=== PATIENT | male | born 1975 | race Caucasian/White ===

== ENCOUNTER 2017-07-18 12:48 | Inpatient (IN) | END 2017-07-20 14:00 | disposition home health service (06) | DRG 720 | DX: A41.9 Sepsis, unspecified organism (principal); D69.6 Thrombocytopenia, unspecified; D75.1 Secondary polycythemia; E83.42 Hypomagnesemia; J20.9 Acute bronchitis, unspecified; E78.1 Pure hyperglyceridemia; E87.6 Hypokalemia; I10 Essential (primary) hypertension; R74.0 Nonspecific elevation of levels of transaminase and lactic acid dehydrogenase [LDH] ==

== ENCOUNTER 2017-09-01 20:04 | Emergency (ER) | payer MEDICAID ==
[~2017-09-01] VITALS: Ht 175.3 cm; Wt 93.0 kg
[~2017-09-01 20:04] MED LIST: ACET325T53 PO; LACT1CAP57 PO; LEVO750T21 PO; METO25TA6 PO
[2017-09-01] MEDS ORDERED: LOSA50TA21 PO (21:14)
[2017-09-01] MEDS ORDERED: CETI-102 PO (21:14)
--- NOTE | 2017-09-01 21:39 | NUR ---
PT IN BED. FAMILY AT BEDSIDE. MD HUNTER CONDUCTING MED EVAL.
--- NOTE | 2017-09-01 22:59 | NUR ---
Patient discharged to home in stable conditon. Written and verbal after care instructions given. Patient verbalizes understanding of instructions.
[2017-09-01 23:20] VITALS: BP 129/98
== END 2017-09-01 23:00 | disposition home or self-care (01) ==
LOC: ER 20:06
DX: J30.9 Allergic rhinitis, unspecified (principal); I10 Essential (primary) hypertension
CPT/HCPCS: 71045; 99283; A4663

== ENCOUNTER 2021-08-31 21:16 | Emergency (ER) | payer MEDICAID ==
[~2021-08-31] VITALS: Ht 172.7 cm; Wt 102.1 kg
[~2021-08-31 21:16] MED LIST changes: +CETI-90 PO; -LACT1CAP57 PO; -LEVO750T21 PO; +LOSA50TA39 PO; -METO25TA6 PO
--- NOTE | 2021-08-31 21:48 | NUR ---
pt c/o cough. pt a/o, at bedside for translation. speaks eritrean.
--- NOTE | 2021-08-31 21:51 | NUR ---
Dr. Bowers at bedside for MSE.
[2021-08-31] MEDS ORDERED: NITROGLYCERIN OINT 1 GM PACKET TP ONE ×2 (22:15→22:19)
[2021-08-31] MEDS ORDERED: CLONIDINE HCL 0.1 MG TABLET PO ONE (22:15)
[2021-08-31] MEDS ORDERED: CLONIDINE HCL 0.1 MG TABLET ONE (22:19)
[2021-08-31 22:37] LABS: POTASSIUM 3.4 mmol/L (3.5-5.1)
[2021-08-31 22:47] LABS: HEMATOCRIT 44.6 % (36.7-47.1); MEAN CORPUSCULAR HEMOGLOBIN 31.6 uug (23.8-33.4); MEAN CORPUSCULAR VOLUME 90.2 fL (73.0-96.2); PLATELET COUNT (AUTO) 186 K/uL (152-348)
[2021-08-31 22:50] LABS: BILIRUBIN,DIRECT 0.1 mg/dL (0.0-0.2); BILIRUBIN,TOTAL 0.4 mg/dL (0.2-1.0); TOTAL PROTEIN, SERUM 7.6 g/dL (6.4-8.2)
[2021-08-31] MEDS ORDERED: CLON0.1T PO (23:32)
--- NOTE | 2021-08-31 23:48 | NUR ---
Patient discharged to home in stable condition. Written and verbal after care instructions given. Patient verbalizes understanding of instructions. Stressed follow up or return to ER for worsening s/s. pt ambulated with steady gait. no SOB, denies pain.
[2021-08-31 23:49] VITALS: BP 140/90
== END 2021-08-31 23:50 | disposition home or self-care (01) ==
LOC: ER 21:17
DX: R05.3 Chronic cough (principal); R06.2 Wheezing; I10 Essential (primary) hypertension; Z20.822 Contact with and (suspected) exposure to COVID-19; E78.00 Pure hypercholesterolemia, unspecified
CPT/HCPCS: 36415; 70030-TC; 71045; 85025; 93005; A4663